=== PATIENT | female | born 1985 | race Caucasian/White ===

== ENCOUNTER 2017-11-20 16:50 | Emergency (ER) | payer OTHER ==
[2017-11-20 17:09] VITALS: BP 141/97
--- NOTE | 2017-11-20 17:51 | UC ---
Piper Sandra Gabriel, scribed for Sheridan Westbrook MD on 11/20/17 at 1744 . Throat Pain/Nasal Alfredo HPI - HPI Summary HPI Summary: This patient is a 32 year old F presenting to [facility] accompanied by her son with a chief complaint of a sore throat since 11/13/17. The patient rates the stabbing pain 4/10 in severity. Symptoms aggravated by swallowing. Patient reports cough, worse at night, and post nasal drip. Patient denies ear pain, eye pain, fever, chills, rash, n/v, and drooling. Believes it exacerbated due to her coal stove causing low humidity in her home. Pt recently got a humidfier. No change in appetite. LNMP was 11/05/17. Pt's medications reviewed this visit - History of Current Complaint Chief Complaint: UCRespiratory Stated Complaint: THROAT PAIN Time Seen by Provider: 11/20/17 17:24 Hx Obtained From: Patient Hx Last Menstrual Period: 11/12/17 Onset/Duration: Lasting Weeks - 1, Still Present Severity: Mild Pain Intensity: 4 Pain Scale Used: 0-10 Numeric Cough: Nonproductive Associated Signs & Symptoms: Negative: Drooling, Fever, Vomiting, Rash - Allergies/Home Medications Allergies/Adverse Reactions: Allergies Allergy/AdvReac Type Severity Reaction Status Date / Time No Known Allergies Allergy Verified 10/07/14 15:04 Home Medications: Home Medications [place]-3 Fatty Acids [Fish Oil] 11/20/17 [History] PMH/Surg Hx/FS Hx/Imm Hx Previously Healthy: Yes Other History Of: Negative For: HIV, Hepatitis B, Hepatitis C - Surgical History Surgical History: Yes Surgery Procedure, Year, and Place: - Family History Known Family History: Negative: Renal Disease, Respiratory Disease, Seizure Disorder - Social History Occupation: Employed Full-time - at [employer] Lives: With Family Alcohol Use: Weekly Substance Use Type: None Smoking Status (MU): Light Every Day Tobacco Smoker Type: Cigarettes Amount Used/How Often: 1 pack per 3 days - Immunization History Most Recent Influenza Vaccination: aug 2014 Review of Systems Constitutional: Fatigue Skin: Negative Eyes: Negative ENT: Sore Throat, Other - post nasal drip Respiratory: Cough All Other Systems Reviewed And Are Negative: Yes Physical Exam Triage Information Reviewed: Yes Appearance: Well-Appearing, No Pain Distress, Well-Nourished Vital Signs: Initial Vital Signs Temp 98.5 F 11/20/17 17:01 Pulse 75 11/20/17 17:01 Resp 16 11/20/17 17:01 BP 141/97 11/20/17 17:01 Pulse Ox 98 11/20/17 17:01 Vital Signs Reviewed: Yes Eye Exam: Normal Eyes: Positive: Conjunctiva Clear ENT: Positive: Hearing grossly normal, Nasal congestion, Other - + PND turbinates boggy no pnd No exudate uvula midline Dental Exam: Normal Neck exam: Normal Neck: Positive: Supple, Nontender, No Lymphadenopathy Respiratory Exam: Normal Respiratory: Positive: Chest non-tender, Lungs clear, Normal breath sounds, No respiratory distress, No accessory muscle use Cardiovascular Exam: Normal Cardiovascular: Positive: RRR, No Murmur, Pulses Normal Musculoskeletal Exam: Normal Musculoskeletal: Positive: Strength Intact, ROM Intact Neurological Exam: Normal Psychological Exam: Normal Skin Exam: Normal Throat Pain/Nasal Course/Dx - Course Course Of Treatment: Pt with nasal congestion,. PND, sore throat worse in am, and intermittent cough. Pt with boggy turbinates and PND on exam. strep neg. d/w pt uri. hydrate. humidify. decongestant. flonase. secretion precaution. pt comfortable and in agreement with plan - Differential Dx/Diagnosis Provider Diagnoses: URI. pharyngitis Discharge - Discharge Plan Condition: Stable Disposition: HOME Prescriptions: Fluticasone NASAL SPRAY 50MCG* [Flonase NASAL SPRAY 50MCG*] 2 spray BOTH NARES DAILY #1 btl Patient Education Materials: Pharyngitis (ED), Upper Respiratory Infection (ED) Referrals: Ira Diop [employer]PERATOR [Primary Care Provider] - Additional Instructions: - Stay well hydrated. Drink plenty of non-alcoholic, non-caffinated beverages - Okay to alternate ibuprofen (advil, motrin) and tylenol every 3 hours as needed for pain or fever - use nasal spray as instructed - Gargle with warm, salt water 2-3 times a day - Cold beverages may be soothing to your throat - popsicles, apple sauce, jello - These infections are spread by secretions - do NOT share eating or drinking utensils - clean items you share with other people such as cell phones, computer mouse, TV remote, computer tablets, etc. Once you start to feel better , change your pillowcase and your toothbrush - humidify the air in the room you sleep - Okay to take a decongestant (sudafed, claritin-D, dennys-D) - Contact your doctor to schedule a follow-up appointment as needed The documentation as recorded by the Piper gonzáles Gabriel accurately reflects the service I personally performed and the decisions made by me, Sheridan Westbrook MD.
== END 2017-11-20 17:55 | disposition home or self-care (01) ==
LOC: UCEAST 16:50
DX: J06.9 Acute upper respiratory infection, unspecified (principal); J02.9 Acute pharyngitis, unspecified; R53.83 Other fatigue; F17.210 Nicotine dependence, cigarettes, uncomplicated
CPT/HCPCS: 87651; 99212; G0463

== ENCOUNTER 2018-01-15 08:42 | Emergency (ER) | payer OTHER ==
[2018-01-15 09:01] VITALS: BP 149/88
--- NOTE | 2018-01-15 10:15 | UC ---
Back Pain HPI - HPI Summary HPI Summary: Pt presents with low back pain. She tells me that 2 days ago she was going to get out of her car and felt a pull in her lower back. Has had pain since that time. Has been taking aspirin with no relief. Denies numbness, tingling, dysuria , radiation of pain, or loss of bowel/bladder control. - History of Current Complaint Chief Complaint: UCBackPain Stated Complaint: LOWER BACK PAIN Time Seen by Provider: 01/15/18 10:05 Hx Obtained From: Patient Hx Last Menstrual Period: 12/07/17 Onset/Duration: Sudden Onset Timing: Constant Severity Initially: Moderate Severity Currently: Moderate Pain Intensity: 6 Pain Scale Used: 0-10 Numeric Character: Aching, Spasmodic, Stiffness Aggravating Factor(s): Movement Alleviating Factor(s): Rest, Position - Allergies/Home Medications Allergies/Adverse Reactions: Allergies Allergy/AdvReac Type Severity Reaction Status Date / Time No Known Allergies Allergy Verified 01/15/18 09:01 Home Medications: Home Medications Aspirin/Caffeine [Jaclyn Back & Body Pain Ex] 2 tab PO DAILY PRN 01/15/18 [ History Confirmed 01/15/18] Fluticasone NASAL SPRAY 50MCG* [Flonase NASAL SPRAY 50MCG*] 2 spray BOTH NARES DAILY PRN 01/15/18 [History Confirmed 01/15/18] Levocetirizine Dihydrochloride [Xyzal Allergy 24Hr] 5 mg PO DAILY 01/15/18 [ History Confirmed 01/15/18] PMH/Surg Hx/FS Hx/Imm Hx Previously Healthy: Yes Other History Of: Negative For: HIV, Hepatitis B, Hepatitis C - Surgical History Surgical History: Yes Surgery Procedure, Year, and Place: - Family History Known Family History: Negative: Renal Disease, Respiratory Disease, Seizure Disorder - Social History Occupation: Employed Full-time Lives: With Family Alcohol Use: Occasionally Substance Use Type: None Smoking Status (MU): Light Every Day Tobacco Smoker Type: Cigarettes Amount Used/How Often: 1 pack per week - Immunization History Most Recent Influenza Vaccination: aug 2014 Review of Systems Constitutional: Negative Skin: Negative Respiratory: Negative Cardiovascular: Negative Gastrointestinal: Negative Motor: Negative Neurovascular: Negative Musculoskeletal: Other: - Low back pain Neurological: Negative Psychological: Negative All Other Systems Reviewed And Are Negative: Yes Physical Exam - Summary Physical Exam Summary: GENERAL: NAD. WDWN. No pain distress. SKIN: No rashes, sores, ulcers, masses, lesions. NECK: Supple. FROM. Nontender. No lymphadenopathy. CHEST: CTAB. No r/r/w. No accessory muscle use. Breathing comfortably and in no distress. CV: RRR. Without m/r/g. Pulses intact. Brisk cap refill. MSK: TTP over lumbar paraspinal muscles. Pain with flexion and extension of spine. Positive SLR on left. Strength 5/5 B/L LEs including dorsiflexion and plantar flexion. FROM B/L LEs. No edema. NEURO: Alert. CN II-XII grossly intact. Sensations intact B/L LEs L3-S1. PSYCH: Age appropriate behavior. Triage Information Reviewed: Yes Vital Signs: Initial Vital Signs Temp 97.7 F 01/15/18 08:57 Pulse 92 01/15/18 08:57 Resp 16 01/15/18 08:57 BP 149/88 01/15/18 08:57 Pulse Ox 100 01/15/18 08:57 Back Pain Course/Dx - Course Course Of Treatment: Suspect low back strain. Toradol IM given in clinic. Advised to stop aspirin and take ibuprofen as needed. Will try flexeril at bedtime. - Differential Dx/Diagnosis Provider Diagnoses: Low back strain Discharge - Discharge Plan Condition: Stable Disposition: HOME Prescriptions: Cyclobenzaprine TAB* [Flexeril 10 MG TAB*] 10 mg PO BEDTIME PRN #10 tab PRN Reason: Pain Patient Education Materials: Low Back Strain (ED), Lower Back Exercises (ED) Forms: *Work Release Referrals: Ira Diop NP [Primary Care Provider] - Additional Instructions: If you develop a fever, shortness of breath, chest pain, new or worsening symptoms - please call your PCP or go to the ED. Your blood pressure was high at todays visit. Please see your primary provider within 4 weeks for recheck and re-evaluation.
[2018-01-15] MEDS ORDERED: Ketorolac INJ* 60 MG/2 ML VIAL IM ONE (10:30)
== END 2018-01-15 10:55 | disposition home or self-care (01) ==
LOC: UCEAST 08:42
DX: S39.012A Strain of muscle, fascia and tendon of lower back, initial encounter (principal); F17.210 Nicotine dependence, cigarettes, uncomplicated; X58.XXXA Exposure to other specified factors, initial encounter; Y92.9 Unspecified place or not applicable; Z32.02 Encounter for pregnancy test, result negative
CPT/HCPCS: 81003; 84702; 99212; G0463; J1885